=== PATIENT | female | born 1950 | race Caucasian/White ===

== ENCOUNTER → 2016-11-09 | Outpatient (CLI) | payer OTHER ==
[~2016-11-09] MED LIST: ACETAMINOPHEN PO; ASPIRIN EC81 M1 PO; LORTAB 7.5-3251 EACH PO; METOPROLOL SUCC25 MG PO
--- NOTE | ~2016-11-09 | EKG ---
PATIENT: CHERIE WEBBER UNIT #: [id number] Ventricular Rate: 96 BPM Atrial Rate: 54 BPM QRS Duration: 84 ms Q-T Interval: 342 ms QTC Calculation(Bezet): 432 ms Calculated R [place]: 18 degrees Calculated T [place]: -9 degrees Diagnosis Line: Atrial fibrillation Diagnosis Line: Low voltage QRS Diagnosis Line: Nonspecific T wave abnormality Diagnosis Line: Abnormal ECG Diagnosis Line: No previous ECGs available Diagnosis Line: Confirmed by ANNE-MARIE GUERRA MD ([id number]) on 11/09/2016 Diagnosis Line: 6:35:47 PM INTERPRETING MD: MARI CHAVEZ
== END | disposition home or self-care (01) ==
LOC: CAMB 14:27
DX: Z01.810 Encounter for preprocedural cardiovascular examination (principal)
CPT/HCPCS: 93005